=== PATIENT | female | born 1990 | race Caucasian/White ===

== ENCOUNTER 2022-10-30 17:51 | Emergency (ER) | payer OTHER ==
[2022-10-30] MEDS ORDERED: Lidocaine 1% 5 ML VIAL INJECT ONE (17:54)
== END 2022-10-30 19:43 | disposition left against medical advice (07) ==
LOC: JP.ED 17:51
DX: Z53.21 Procedure and treatment not carried out due to patient leaving prior to being seen by health care provider (principal)